=== PATIENT | female | born 2005 | race Caucasian/White ===

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

== ENCOUNTER 2025-03-04 08:35 | Day surgery (SDC) | payer MEDICAID, SELFPAY ==
[2025-03-03 17:55] LABS: HCG Qualitative,Urine Negative
[2025-03-04] VITALS (11 sets, daily range): BP systolic 112–129; BP diastolic 67–98; PULSE 99–128; RESP 16–24; TEMP 36.6–36.8; O2SAT 96–100; BMI 26.1
[2025-03-04] MEDS: MIDAZOLAM INJ 1 MG/ML VIAL 2 ML (ASD USE ONLY) 2 MG IVP (10:56)
[2025-03-04] MEDS: RINGERS LACTATED 500 ML 500 ML 20 ML IV (10:56)
[2025-03-04] MEDS: fentaNYL CIT INJ 50 mCg/ML AMP 2ML (ASD USE ONLY) IVP (10:57)
== END 2025-03-04 12:00 | disposition home or self-care (01) ==
PROVIDERS: Anesthesiology; PCP Nurse Practitioner Family; Referring Provider Internal Medicine Gastroenterology; Visit Provider Internal Medicine Gastroenterology
PROC: 0DBE8ZX Excision of Large Intestine, Via Natural or Artificial Opening Endoscopic, Diagnostic (ICD-10-PCS; CPT 45380; principal; 2025-03-04 09:00)
DX: K64.9 Unspecified hemorrhoids (principal)
CPT/HCPCS: 45380; 81025; A4217; A4649; J1200; J2250; J3010; J7120